=== PATIENT | female | born 1940 | race African-American/Black ===

== ENCOUNTER 2019-07-24 04:08 | Inpatient (IN) | payer MEDICARE, MEDICAID ==
[~2019-07-24] VITALS: Ht 165.1 cm; Wt 112.9 kg
[~2019-07-24 04:08] MED LIST: ACET-3161 PO; ASPI-518 PO; CARSR90 PO; DOCU-138 PO; FERR-63 PO; FOLI-43 PO; FURO-151 PO; LOSA100T32 PO
[2019-07-24] MEDS ORDERED: SODIUM CHLORIDE 0.9% 1,000 ML IV ONE (04:28)
[2019-07-24] MEDS ORDERED: ONDANSETRON HCL 4MG/2ML INJ IV SCH (04:28)
[2019-07-24] MEDS ORDERED: MORPHINE SULFATE 4 MG/ML CPJ (NOT FOR IM USE) IV SCH (04:39)
[2019-07-24 04:57] LABS: BASOPHILS % 1.3 % (0.0-2.0); EOSINOPHILS % 1.5 % (0.0-5.0); HEMATOCRIT. 31.7 % (36.0-48.0); HEMOGLOBIN. 10.3 g/dL (12.0-16.0); LYMPHOCYTES % 21.4 % (20.0-50.0); MEAN CORPUSCULAR HEMOGLOBIN 23.2 pg (28.0-32.0); MEAN CORPUSCULAR VOLUME 71.3 fL (81.0-99.0); MEAN PLATELET VOLUME 9.3 fl (7.4-10.4); MONOCYTES % 5.7 % (2.0-8.0); NEUTROPHILS % 70.1 % (40.0-76.0); PLATELET 203 x1000/uL (130-400); RED BLOOD CELL COUNT 4.45 mill/uL (4.2-5.4); RED CELL DISTRIBUTION WIDTH 17.3 % (11.6-14.6)
[2019-07-24 05:05] LABS: CHLORIDE 112 mEq/L (98-107)
[2019-07-24] MEDS ORDERED: DIATR MEGLU/DIATRIZOATE SOLN 30ML ONE (05:28)
[2019-07-24] MEDS ORDERED: MORPHINE SULFATE 4 MG/ML CPJ (NOT FOR IM USE) IV ONE (05:30)
[2019-07-24 06:31] LABS: CLARITY URINE CLEAR (CLEAR); COLOR URINE YELLOW (YELLOW); KETONES URINE NEGATIVE (NEGATIVE); LEUKOCYTE ESTERASE URINE 2+ (NEGATIVE); NITRITE URINE NEGATIVE (NEGATIVE); OCCULT BLOOD URINE NEGATIVE (NEGATIVE); PROTEIN URINE NEGATIVE (NEGATIVE); SPECIFIC GRAVITY URINE 1.018 (1.005-1.030)
[2019-07-24] MEDS ORDERED: ONDANSETRON 4MG ODT ONE (07:44)
[2019-07-24] MEDS ORDERED: ONDANSETRON 4MG ODT PO ONE (07:45)
[2019-07-24] MEDS ORDERED: ONDANSETRON HCL 4MG/2ML INJ IV PRN (08:45)
[2019-07-24] MEDS ORDERED: SORBITOL 70% SOLN 30ML PO NR (08:45)
[2019-07-24] MEDS ORDERED: HYDROMORPHONE HCL/PF 2MG/ML CPJ IV PRN (08:45)
[2019-07-24] MEDS ORDERED: NA PHOS,M-B/NA PHOS,DI-BA ENEMA 118ML PR NR (08:45)
[2019-07-24] MEDS ORDERED: CLONIDINE 0.1MG TABLET PO PRN (08:45)
[2019-07-24] MEDS ORDERED: ENOXAPARIN 40MG/0.4ML SYR SUBCUT SCH (08:45)
[2019-07-24] MEDS ORDERED: DILTIAZEM HCL 180MG CAPSULE CD 24HR PO NR (09:00)
[2019-07-24] MEDS ORDERED: ACETAMINOPHEN WITH CODEINE 300/30MG TABLET PO PRN (09:00)
[2019-07-24] MEDS: LOSARTAN POTASSIUM 100 MG TABLET PO SCH (09:30)
[2019-07-24] MEDS: POTASSIUM CHLORIDE 10MEQ TABLET SR PO SCH (09:30)
[2019-07-24] MEDS: FOLIC ACID 1MG TABLET PO SCH (09:30)
[2019-07-24] MEDS: DOCUSATE SODIUM 250MG CAPSULE PO SCH (09:30)
[2019-07-24] MEDS: FERROUS SULFATE 325MG TABLET PO SCH (09:30)
[2019-07-24] MEDS ORDERED: IOHEXOL-300 100 ML BOTTLE ONE (09:32)
[2019-07-24] MEDS ORDERED: LEVOFLOXACIN 500MG PREMIX 100 ML IV NR (09:45)
[2019-07-24] MEDS: ENOXAPARIN 30MG/0.3ML SYR SUBCUT SCH ×2 (10:00→23:23)
[2019-07-24] MEDS: FUROSEMIDE 40MG/4ML VIAL IVP SCH (10:14)
[2019-07-24] MEDS ORDERED: ZOLPIDEM TARTRATE 5MG TABLET PO PRN (21:00)
[2019-07-24 22:30] VITALS: BP 140/47
[2019-07-25] VITALS: BP 143/47
[2019-07-25] MEDS ORDERED: LEVOFLOXACIN 500MG PREMIX 100 ML IV SCH
[2019-07-25 06:44] LABS: BASOPHILS % 0.6 % (0.0-2.0); EOSINOPHILS % 3.3 % (0.0-5.0); HEMATOCRIT. 26.4 % (36.0-48.0); HEMOGLOBIN. 8.6 g/dL (12.0-16.0); MEAN CORPUSCULAR VOLUME 70.5 fL (81.0-99.0); MEAN PLATELET VOLUME 9.2 fl (7.4-10.4); MONOCYTES % 8.5 % (2.0-8.0); NEUTROPHILS % 68.6 % (40.0-76.0); PLATELET 145 x1000/uL (130-400); RED BLOOD CELL COUNT 3.74 mill/uL (4.2-5.4); RED CELL DISTRIBUTION WIDTH 17.5 % (11.6-14.6)
[2019-07-25 07:09] LABS: CHLORIDE 114 mEq/L (98-107)
[2019-07-25] MEDS: DOCUSATE SODIUM 250MG CAPSULE PO SCH (08:09)
[2019-07-25] MEDS: LOSARTAN POTASSIUM 100 MG TABLET PO SCH (08:10)
[2019-07-25] MEDS: FUROSEMIDE 40MG/4ML VIAL IVP SCH (08:10)
[2019-07-25] MEDS: ENOXAPARIN 30MG/0.3ML SYR SUBCUT SCH ×2 (08:10→22:22)
[2019-07-25] MEDS: POTASSIUM CHLORIDE 10MEQ TABLET SR PO SCH (08:10)
[2019-07-25] MEDS: FOLIC ACID 1MG TABLET PO SCH (08:10)
[2019-07-25] MEDS: FERROUS SULFATE 325MG TABLET PO SCH (08:10)
[2019-07-25 12:00] VITALS: BP 114/59
[2019-07-25] MEDS ORDERED: SORBITOL 70% SOLN 30ML PO SCH (14:00)
[2019-07-25 16:00] VITALS: BP 140/60
[2019-07-25 20:00] VITALS: BP 97/41
[2019-07-26] VITALS (7 sets, daily range): BP systolic 92–145; BP diastolic 43–90
[2019-07-26] MEDS: LEVOFLOXACIN 500MG PREMIX 100 ML IV NR ×2 (01:07)
[2019-07-26 05:42] LABS: BASOPHILS % 0.4 % (0.0-2.0); EOSINOPHILS % 1.5 % (0.0-5.0); HEMOGLOBIN. 9.1 g/dL (12.0-16.0); MEAN CORPUSCULAR HEMOGLOBIN 22.9 pg (28.0-32.0); MEAN CORPUSCULAR VOLUME 70.4 fL (81.0-99.0); MONOCYTES % 9.7 % (2.0-8.0); NEUTROPHILS % 73.4 % (40.0-76.0); PLATELET 155 x1000/uL (130-400); RED BLOOD CELL COUNT 3.98 mill/uL (4.2-5.4); RED CELL DISTRIBUTION WIDTH 16.8 % (11.6-14.6)
[2019-07-26 05:56] LABS: CHLORIDE 113 mEq/L (98-107)
[2019-07-26] MEDS ORDERED: POTASSIUM CHLORIDE 20MEQ TABLET SR PO NR (08:00)
[2019-07-26 08:57] LABS: PHOSPHORUS 2.7 mg/dL (2.5-4.9)
[2019-07-26] MEDS: LOSARTAN POTASSIUM 100 MG TABLET PO SCH (09:00)
[2019-07-26] MEDS: FUROSEMIDE 40MG/4ML VIAL IVP SCH (09:00)
[2019-07-26] MEDS: FOLIC ACID 1MG TABLET PO SCH (10:17)
[2019-07-26] MEDS: DOCUSATE SODIUM 250MG CAPSULE PO SCH (10:18)
[2019-07-26] MEDS: FERROUS SULFATE 325MG TABLET PO SCH (10:18)
[2019-07-26] MEDS: ENOXAPARIN 30MG/0.3ML SYR SUBCUT SCH ×3 (10:19→22:07)
[2019-07-26] MEDS: SODIUM CHLORIDE 0.45% 1,000 ML IV SCH (10:34)
[2019-07-26] MEDS: POTASSIUM CHLORIDE 10MEQ TABLET SR PO SCH (11:19)
[2019-07-26] MEDS: NITROFURANTOIN 100MG M/M CAPSULE PO SCH ×3 (11:20→22:07)
[2019-07-26] MEDS ORDERED: LEVOFLOXACIN 500MG PREMIX 100 ML IV SCH (20:00)
[2019-07-27] VITALS: BP 139/67
[2019-07-27] MEDS: SODIUM CHLORIDE 0.45% 1,000 ML IV SCH (02:56)
[2019-07-27 04:00] VITALS: BP 151/72
[2019-07-27 07:51] LABS: BASOPHILS % 0.8 % (0.0-2.0); EOSINOPHILS % 4.8 % (0.0-5.0); HEMATOCRIT. 25.9 % (36.0-48.0); HEMOGLOBIN. 8.5 g/dL (12.0-16.0); LYMPHOCYTES % 23.8 % (20.0-50.0); MEAN CORPUSCULAR HEMOGLOBIN 23.1 pg (28.0-32.0); MEAN CORPUSCULAR VOLUME 70.8 fL (81.0-99.0); MONOCYTES % 10.2 % (2.0-8.0); NEUTROPHILS % 60.4 % (40.0-76.0); PLATELET 131 x1000/uL (130-400); RED BLOOD CELL COUNT 3.66 mill/uL (4.2-5.4)
[2019-07-27 08:00] VITALS: BP 99/43
[2019-07-27] MEDS ORDERED: SORBITOL 70% SOLN 30ML PO SCH (08:00)
[2019-07-27] MEDS ORDERED: KDUR10 PO (08:02)
[2019-07-27] MEDS ORDERED: NITR100C11 PO (08:02)
[2019-07-27] MEDS ORDERED: DOCU250C14 PO (08:02)
[2019-07-27 08:05] LABS: CHLORIDE 112 mEq/L (98-107)
[2019-07-27] MEDS: FERROUS SULFATE 325MG TABLET PO SCH (08:51)
[2019-07-27] MEDS: FOLIC ACID 1MG TABLET PO SCH (08:51)
[2019-07-27] MEDS: DOCUSATE SODIUM 250MG CAPSULE PO SCH (08:51)
[2019-07-27] MEDS: POTASSIUM CHLORIDE 10MEQ TABLET SR PO SCH (08:51)
[2019-07-27] MEDS: LOSARTAN POTASSIUM 100 MG TABLET PO SCH (09:00)
[2019-07-27 10:28] VITALS: BP 99/43
[2019-07-27 12:00] VITALS: BP 143/61
[2019-07-27] MEDS ORDERED: NA PHOS,M-B/NA PHOS,DI-BA ENEMA 118ML PR NR (17:05)
== END 2019-07-27 19:00 | disposition home health service (06) | DRG 394 ==
LOC: ER 04:08 → 5WST 05:28 → EDBEDREQ 05:30 → EDBEDREQTM 05:30 → ENRESERV 21:06 → 5WST 22:43
PROVIDERS: ADMIT Internal Medicine Geriatric Medicine; ATTEND Internal Medicine Geriatric Medicine
DX: K42.9 Umbilical hernia without obstruction or gangrene (principal); N39.0 Urinary tract infection, site not specified; Z68.41 Body mass index [BMI] 40.0-44.9, adult; K56.41 Fecal impaction; E66.01 Morbid (severe) obesity due to excess calories; E11.65 Type 2 diabetes mellitus with hyperglycemia; I11.0 Hypertensive heart disease with heart failure; E87.6 Hypokalemia; B96.20 Unspecified Escherichia coli [E. coli] as the cause of diseases classified elsewhere; I50.9 Heart failure, unspecified; I48.0 Paroxysmal atrial fibrillation; I87.2 Venous insufficiency (chronic) (peripheral); K57.30 Diverticulosis of large intestine without perforation or abscess without bleeding; K43.9 Ventral hernia without obstruction or gangrene; Z60.2 Problems related to living alone; G47.33 Obstructive sleep apnea (adult) (pediatric); I95.9 Hypotension, unspecified; R26.9 Unspecified abnormalities of gait and mobility; R00.0 Tachycardia, unspecified; Z79.82 Long term (current) use of aspirin; Z79.899 Other long term (current) drug therapy; Z91.14 Patient's other noncompliance with medication regimen
CPT/HCPCS: 36415; 71045; 74177; 80048; 80053; 80061; 81003; 82330; 83036; 83605; 83735; 83970; 84100; 84443; 84484; 85025; 87077; 87186; 93005; 93306; 93970; 96374; 97162; 99285; J1170; J1650; J1940; J1956; J2270; J2405; Q0162; Q9963; Q9967